=== PATIENT | female | born 1970 | race Caucasian/White ===

== ENCOUNTER 2023-12-21 09:43 | Emergency (ER) | payer MEDICAID, SELFPAY ==
--- NOTE | ~2023-12-21 | XR_ITS ---
EXAMINATION: XR wrist LT 2V DATE: 12/21/2023 09:59 INDICATION: Radial sided left wrist pain and numbness. TECHNIQUE: Posteroanterior and lateral views of the left wrist were obtained. COMPARISON: none FINDINGS: Alignment is normal. No fracture. Joint spaces are normal. Soft tissues are unremarkable. IMPRESSION: 1. Negative left wrist radiographs. Reviewed, dictated and finalized at location A.
[2023-12-21 09:46] VITALS: BP 145/99; PULSE 74; RESP 18; TEMP 35.9; O2SAT 96
--- NOTE | 2023-12-21 10:30 | ED.UPPEXIN ---
HPI - Extremity Injury (Upper) General Chief Complaint: Extremity Injury, Upper Stated Complaint: L Wrist painful Time Seen by Provider: 12/21/23 09:54 History of Present Illness HPI narrative: Patient is a 53-year-old female who presents the ER with left wrist pain. Ongoing for 4 days. It started after she was picking up her grandson. No fevers or chills or sweats. No redness. She does have swelling of the wrist. Increased pain with flexion and extension of the wrist. Reports previous diagnosis of carpal tunnel syndrome. Occasionally has numbness going into her hand. She has been wearing a wrist splint but not taking any pain medications. Related Data Allergies Allergy/AdvReac Type Severity Reaction Status Date / Time acetaminophen Allergy Hives Verified 12/21/23 10:01 [From Tylenol-Codeine #3] codeine Allergy Hives Verified 12/21/23 10:01 [From Tylenol-Codeine #3] morphine AdvReac Vomiting Verified 12/21/23 10:01 Review of Systems Constitutional: Constitutional: Reports no additional constitutional complaints Musculoskeletal: Musculoskeletal: Reports arthralgias, Reports joint swelling and Denies muscle cramps Integumentary/Breasts: Skin/Breast: Reports system reviewed and no additional complaints, except as docu Neurologic: Reports system reviewed and no additional complaints, except as documented [facility] Past Medical History Medical History (Updated 12/21/23 @ 10:34 by Ki Wadsworth MD) Hyperlipidemia Hypertension Exam Narrative: GENERAL: Well-appearing, obese, and in no acute distress. HEAD: Normocephalic, atraumatic. CHEST: Clear to auscultation. No respiratory distress. HEART: Regular rate and rhythm. Normal peripheral pulses. ABDOMEN: Soft, nontender, nondistended. EXTREMITIES: left wrist with mild edema with with tenderness over the carpal tunnel. No tenderness over the anatomic snuffbox. near normal flexion and limited extension due to pain. No erythema. SKIN: Warm, dry, no rash. NEURO: Alert and oriented x3. PSYCH: Normal mood and affect. Course Course Emergency Course: Discussed conservative treatment with anti-inflammatories and wrist splinting. Discussed rest /ice /compression /elevation. Recommend follow-up with PCP. Discharge. Vital Signs Vital signs: Vital Signs Temperature 96.6 F L 12/21/23 09:46 Pulse Rate 74 12/21/23 09:46 Respiratory Rate 18 12/21/23 09:46 Blood Pressure 145/99 H 12/21/23 09:46 Pulse Oximetry 96 12/21/23 09:46 Oxygen Delivery Room Air 12/21/23 09:46 Temperature 96.6 F L 12/21/23 09:46 Pulse Rate 74 12/21/23 09:46 Respiratory Rate 18 12/21/23 09:46 Blood Pressure 145/99 H 12/21/23 09:46 Pulse Oximetry 96 12/21/23 09:46 Oxygen Delivery Room Air 12/21/23 09:46 MDM - Extremity Injury (Upper) Imaging Data Radiologist's impression: ITS Impressions Wrist X-Ray 12/21/23 10:01 IMPRESSION: 1. Negative left wrist radiographs. Discharge Plan Discharge Clinical Impression: Sprain and strain of wrist Patient Disposition: Home, Self-Care Condition: Stable Instructions: P.R.I.C.E. Treatment (ED), Wrist Sprain (ED) Additional Instructions: continue to wear your wrist splint as much as possible. Take naproxen twice a day to help with pain. You may take Tylenol throughout the day as well. Return to the ER if your hand is red and hot, you have fever over 100.4? F, or you have additional concerns. There are no broken bones on your x-ray. Follow-up with your primary care physician. You may also have a component of carpal tunnel syndrome and if your symptoms persist you may need to see a hand surgeon. Prescriptions: New naproxen 375 mg tablet 375 mg PO BID Qty: 14 0RF Follow-up/Referrals: PHYSICIAN NOT ON STAFF,NONSTAFF [Primary Care Provider] - 1 Week
[2023-12-21 10:48] VITALS: BP 197/98; PULSE 66; RESP 14; TEMP 36.4; O2SAT 95
== END 2023-12-21 10:51 | disposition home or self-care (01) ==
PROVIDERS: Emergency Provider Emergency Medicine
DX: S66.912A Strain of unspecified muscle, fascia and tendon at wrist and hand level, left hand, initial encounter (principal); S63.501A Unspecified sprain of right wrist, initial encounter; I10 Essential (primary) hypertension; E78.5 Hyperlipidemia, unspecified; X50.9XXA Other and unspecified overexertion or strenuous movements or postures, initial encounter
CPT/HCPCS: 73100; 99283